=== PATIENT | female | born 1960 | race Caucasian/White ===

== ENCOUNTER 2025-07-27 17:29 | Outpatient (CLI) | payer BC, SELFPAY ==
--- NOTE | 2025-07-27 17:30 | MR_ITS ---
[address] [address] Phone:?[phone] Fax:?[phone] Referring Physician Information: Sampson Deleon M.D. [address] [facility] [address] Phone:?[phone] Fax:?[phone] Patient:Jerry Winters D.O.B:?1960 Sex:?Female Phone:?[phone] [facility] MRN:?[id number] Exam Date:?07/27/2025 EXAM: MRI of the LEFT KNEE, without contrast CLINICAL: Female, 65 years old, with left knee pain. INDICATION: Evaluate for suspected meniscus tear. PRIOR SURGERY: None reported. PLAIN FILMS: 06/30/2025 radiographic series of the left knee. COMPARISONS: No prior MRIs available. TECHNICAL: Using a 1.5 Tiffany MR scanner and a localizing surface coil: 3.0 mm?sagittals: PD, PDFS 3.0 mm?coronals: PD, STIR 3.0 mm?axials: PD, T2FS There is significant degradation of image quality due to decreased ifdskz-up-strbp ratio, somewhat limiting evaluation. SEDATION: None. CONTRAST: None. IMPRESSION: 1. Expected mildly complex predominantly oblique horizontal, but also some additional irregularity, tear of the medial meniscus centered at its middle third. 2. Expected mild medial compartment chondromalacia/osteoarthritis with minimal subjacent marrow edema. 3. Mild chondromalacia/degenerative change of the lateral patellar facet with small subchondral cysts. 4. Small towards moderate knee effusion. 5. No lateral meniscus tear. 6. No cruciate or collateral ligament injuries. FINDINGS: Knee joint: Effusion: Small towards moderate left knee joint effusion. Popliteal cyst: Minimal popliteal cyst. Loose bodies: No convincing discrete loose bodies. Subcutaneous and extra-articular soft tissues: Mild nonspecific deep subcutaneous soft tissue swelling/edema over the anterior knee. No defined fluid collection. Ligaments: ACL: Intact and normal. PCL: Intact and normal. MCL: Intact and normal. FCL: Intact and normal. Posterolateral corner: Intact popliteus, biceps femoris, iliotibial band, popliteofibular ligament and lateral gastrocnemius. Posteromedial corner: Intact pes anserinus and posterior oblique ligament. Extensor mechanism: Patellar tendon: Intact and normal. Quadriceps tendon: Intact and normal. Retinacula: Intact and normal. Fat pads: Unremarkable. Medial compartment: Medial meniscus: Abnormal signal alteration and deformity in keeping with expected relatively complex tear of middle third of the medial meniscus with extension of tear into adjacent portions of posterior greater than anterior thirds (sagittal images 8-15; coronal images 22-15). Medial femoral condyle: Limited evaluation of articular cartilage due to the degradation of image quality but expected chondromalacia/thinning of the central weight-bearing medial femoral condyle, without subjacent reactive marrow edema. Medial tibial plateau: Also expected chondral thinning of the medial tibial plateau with minimal focus of slight subjacent marrow edema anteriorly. Lateral compartment: Lateral meniscus: Intact and normal. Lateral femoral condyle: No demonstrable chondromalacia. Lateral tibial plateau: No demonstrable chondromalacia. Patellofemoral joint: Patella: Localized less than 1 cm grade II-III chondromalacia of junction of lateral facet and median patellar ridge is accompanied by small 4 mm subchondral cyst (axial images 8-9). Trochlea: No demonstrable chondromalacia. Proximal tibiofibular joint: Unremarkable. Bones: No other marrow edema or fractures. Neurovascular: Popliteal artery/vein: Normal. Anterior tibial artery: No aberrant variant. Tibial nerve: Normal. Popliteal nerve: Normal. Common peroneal nerve: Normal. [facility] Electronically signed on 07/28/2025 3:35:00 PM by Jonn Finley M.D.
== END 2025-07-27 17:30 | disposition home or self-care (01) ==
LOC: MRI 17:29
PROVIDERS: PCP Family Medicine; Visit Provider Orthopaedic Surgery
DX: M25.562 Pain in left knee (principal); S83.232A Complex tear of medial meniscus, current injury, left knee, initial encounter; M94.262 Chondromalacia, left knee; M25.462 Effusion, left knee
CPT/HCPCS: 73721

== ENCOUNTER 2025-08-27 08:32 | Day surgery (SDC) | payer BC, SELFPAY ==
[2025-08-27] VITALS (18 sets, daily range): BP systolic 73–128; BP diastolic 49–78; PULSE 61–79; RESP 12–16; TEMP 36.2–36.7; O2SAT 92–100; BMI 41.6
[2025-08-27] MEDS: SODIUM CHLORIDE 0.9 % (FLUSH) 10 ML SYRINGE IVF (08:55)
[2025-08-27] MEDS: LACTATED RINGERS 1000 ML 1,000 ML 100 ML IV (08:55)
[2025-08-27] MEDS: BUPIVACAINE 0.25% 30 ML INJECTION (11:32)
--- NOTE | 2025-08-27 11:55 | P.ORPRC_ITS ---
Procedure Note Date of procedure: 08/27/25 Procedure: PREOPERATIVE DIAGNOSIS: Left knee medial meniscus tear POSTOPERATIVE DIAGNOSIS: Left knee medial meniscus tear NAME OF OPERATION: Left knee arthroscopic partial medial meniscectomy SURGEON: Sampson Deleon MD SHADE CLOTH FINISHER: Nedra Vega PA-C ANESTHESIA: Spinal ESTIMATED BLOOD LOSS: 0 mL COMPLICATIONS: None SPECIMENS: None DRAINS: None PREOPERATIVE ANTIBIOTICS: Ancef 2 gram INDICATIONS: The patient is a 65-year-old with a history of left knee medial pain. MRI scan is consistent with a medial meniscus tear. Despite appropriate nonoperative management, including activity modification, antiinflammatories, gxng-pch-hvimmwt pain medication, bracing, physical therapy, and injections they continue to have pain and disability. Operative intervention was offered. The risks, benefits and expected outcomes were discussed in detail. These included but were not limited to: Infection, bleeding, injury to blood vessel or nerve, venous thromboembolism. All questions were answered to their satisfaction. PROCEDURE: Spinal anesthesia was administered. The patient was placed supine on the operating room table. The left lower extremity was prepped and draped in the usual sterile fashion. The limb was exsanguinated with the Raf bandage. The pneumatic tourniquet was inflated to 300 mmHg. A standard anterolateral portal was established. The arthroscope was introduced. The working portal was established anteromedially. Diagnostic arthroscopy was performed with findings as follows: The suprapatellar pouch is normal. Articular surface on the patella is normal. Articular surface on the trochlea is normal. The medial gutter is normal. The medial compartment shows diffuse grade 3 change on the medial femoral condyle, grade 2 change on the medial tibial plateau. The medial meniscus has a complex degenerative tear of the midbody and posterior horn. This consists of a radial tear at the junction of the midbody and posterior horn with an anteriorly based unstable flap. There was horizontal cleavage tearing of the undersurface of the posterior horn. The notch shows the ACL to be intact. The lateral compartment shows normal articular cartilage on the lateral femoral condyle and lateral tibial plateau. The lateral meniscus is normal. The lateral gutter is normal. The posterior horn of the medial meniscus was debrided to a stable base using a combination of baskets and angela through both portals. Arthroscopic instruments were removed, the portal sites were Steri-Stripped closed, the knee was infiltrated with 30 mL of 0.25% Marcaine without epinephrine. A dry dressing was applied, the tourniquet was released. Sponge and needle counts were correct x 2. The patient tolerated the procedure well. There were no apparent complications. They were carefully transferred to the hospital bed and taken to the postanesthesia care unit in satisfactory condition. PLAN: The patient will be discharged to home. They may weightbear as tolerates. Range of motion will be unrestricted. They will follow up in the office next week for a wound check.
--- NOTE | 2025-08-27 11:59 | P.ANES_ITS ---
Anesthesia Charges Start Date/Time Anesthesia Start Date: 08/27/25 Anesthesia Start Time: 10:57 Stop Date/Time Anesthesia Stop Date: 08/27/25 Anesthesia Stop Time: 11:54 Coding CPT Codes CPT Codes: ANESTH KNEE JOINT SURGERY - 84038 ([id number]) P3 - PATIENT W/SEVERE SYS DISEASE, QK - LINUX SECURITY ADMINISTRATOR 2-4 CNCRNT ANES PROC, QX - DESIGN ENGINEERING TECHNICIAN SVC W/ MD MED DIRECTION
--- NOTE | 2025-08-27 11:59 | W.ANESCHARGE ---
Anesthesia Charges Start Date/Time Anesthesia Start Date: 08/27/25 Anesthesia Start Time: 10:57 Stop Date/Time Anesthesia Stop Date: 08/27/25 Anesthesia Stop Time: 11:54 Coding CPT Codes CPT Codes: ANESTH KNEE JOINT SURGERY - 97072 ([id number]) P3 - PATIENT W/SEVERE SYS DISEASE, QK - TYPEWRITERS FUNCTIONAL TESTER 2-4 CNCRNT ANES PROC, QX - FLOOR COVERER SVC W/ MD MED DIRECTION
[2025-08-27] MEDS: PHENYLEPHRINE 100 MCG/ML SYRINGE IVP ×2 (12:04→12:18)
--- NOTE | 2025-08-27 12:41 | P.ANES_ITS ---
Anesthesia Charges Start Date/Time Anesthesia Start Date: 08/27/25 Anesthesia Start Time: 10:57 Stop Date/Time Anesthesia Stop Date: 08/27/25 Anesthesia Stop Time: 11:54 Coding CPT Codes CPT Codes: ANESTH KNEE JOINT SURGERY - 72409 ([id number]) QK - SPACE ENGINEER 2-4 CNCRNT ANES PROC, QX - ELECTRONIC NEWS GATHERING EDITOR SVC W/ MD MED DIRECTION, P3 - PATIENT W/SEVERE SYS DISEASE
--- NOTE | 2025-08-27 12:41 | W.ANESCHARGE ---
Anesthesia Charges Start Date/Time Anesthesia Start Date: 08/27/25 Anesthesia Start Time: 10:57 Stop Date/Time Anesthesia Stop Date: 08/27/25 Anesthesia Stop Time: 11:54 Coding CPT Codes CPT Codes: ANESTH KNEE JOINT SURGERY - 37366 ([id number]) QK - MARKETING TRAFFIC MANAGER 2-4 CNCRNT ANES PROC, QX - NEWS GATHERING TECHNICIAN SVC W/ MD MED DIRECTION, P3 - PATIENT W/SEVERE SYS DISEASE
[2025-08-27] MEDS: IBUPROFEN 600 MG TABLET PO (13:01)
== END 2025-08-27 13:40 | disposition home or self-care (01) ==
PROVIDERS: PCP Family Medicine; Visit Provider Orthopaedic Surgery
PROC: (CPT 29870; principal; 2025-08-27 10:15)
DX: M23.222 Derangement of posterior horn of medial meniscus due to old tear or injury, left knee (principal)
CPT/HCPCS: 29881; 01400; A9270; J0665; J0690; J1100; J1885; J2250; J2405; J2704; J7120

== ENCOUNTER 2025-10-20 07:05 | Day surgery (SDC) | payer BC, SELFPAY ==
[2025-10-20] VITALS (25 sets, daily range): BP systolic 87–137; BP diastolic 48–86; PULSE 79–103; RESP 14–20; TEMP 36–36.7; O2SAT 89–100; BMI 37.0
[2025-10-20] MEDS: CELECOXIB 200 MG CAPSULE PO ×2 (07:47→20:19)
[2025-10-20] MEDS: ACETAMINOPHEN 500 MG TABLET 1000 MG PO ×3 (07:47→22:13)
[2025-10-20] MEDS: SODIUM CHLORIDE 0.9 % (FLUSH) 10 ML SYRINGE IVF (08:16)
[2025-10-20] MEDS: LACTATED RINGERS 1000 ML 1,000 ML 100 ML IV ×2 (08:17→11:30)
--- NOTE | 2025-10-20 08:18 | SUR.PREOP ---
Dr. Banegas in to see pt and .
--- NOTE | 2025-10-20 08:21 | W.PM.H&PU ---
History & Physical Update History & Physical Update H&P Reviewed and patient assessed: No changes noted
--- NOTE | 2025-10-20 08:21 | PM.ORPRC ---
Procedure Note Date of procedure: 10/20/25 Procedure: PREOPERATIVE DIAGNOSIS: 1. Right knee osteoarthritis POSTOPERATIVE DIAGNOSES: 1. Right knee osteoarthritis PROCEDURE: 1. Right total knee arthroplasty (cemented, stemmed, fixed bearing) SURGEON: Alexi Banegas MD PERSONNEL SECURITY SPECIALIST: Warner Adams A skilled assistant business manager was critical for this case to aid in patient positioning, tissue retraction, bone exposure, limb manipulation/positioning, patient safety, and wound closure. ANESTHESIA: Spinal with adductor canal and genicular nerve blocks IMPLANTS: DePuy Attune knee system (cemented, stemmed, fixed bearing): Revision CRS femur size 6 with 14 mm x 50 mm cemented stem Revision tibial base fixed bearing size 5 with 14 mm x 50 mm cemented stem Posterior stabilized fixed bearing tibial insert size 5, 5 mm Attune cemented patella size 35 mm EBL: 200 ml TOURNIQUET TIME: 106 minutes at 250 mmHg COMPLICATIONS: None evident INDICATIONS: Josephine is a 65-year-old female who has chronic right knee pain secondary to osteoarthritis. Symptoms have worsened despite non operative treatment. Patient is now interested in proceeding with total knee arthroplasty for improved function, decreased pain, and better quality of life. Prior to the procedure, risks and benefits of the operative and non operative treatment were discussed with the patient. After discussion of risks, benefits, and alternatives of surgery, informed consent was obtained, and the operative site was marked. FINDINGS: Moderate to severe tricompartmental osteoarthritis with full-thickness cartilage loss and eburnated bone in the medial and patellofemoral compartments; grade 3 chondromalacia in the lateral compartment; and tricompartmental peripheral osteophyte formation. PROCEDURE: Patient was seen preoperatively and operative site was marked. Adductor canal and genicular nerve blocks were performed by anesthesia staff. Patient was then brought to the operating room, where spinal anesthesia was administered by the anesthesia staff. Patient was then placed into the supine position on the OR table and all bony prominences were well padded. 1.5 g IV vancomycin and 1 g IV tranexamic acid were administered preoperatively. A tourniquet was placed on the thigh of the operative leg. The operative lower extremity was prepped and draped in usual sterile fashion. A surgical time-out was performed confirming patient identity, surgical procedure, and surgical site. Initially, the tourniquet was not inflated. A longitudinal, anterior, midline skin incision was made starting approximately 4 cm proximal to the superior pole of the patella and advanced distal to the tibial tubercle. Incision was carried through subcutaneous tissues. The quadriceps tendon, medial patellar retinaculum, lateral patellar retinaculum, and patellar tendon were visualized. A subvastus approach was utilized to enter the joint. The proximal medial tibia was subperiosteally exposed distal to the joint line, and a curved osteotome was used to enter the semimembranosus bursa medially at the level of the joint line. The retropatellar fat pad was resected, and the synovium in the suprapatellar pouch was excised to visualize the anterior femoral cortex. The knee was flexed and patella was everted. Patella was protected anteverted, the knee was flexed. A rongeur was used to remove osteophytes from the medial and lateral tibial plateaus. The medial meniscus was excised at the meniscal synovial junction. At this point due to persistent bleeding, decision was made to use the tourniquet. Operative extremity was elevated and exsanguinated with an Esmarch, and tourniquet was inflated to 250 mmHg. The tourniquet remained inflated for 106 minutes before it was deflated. The anterior cruciate ligament was excised. A Z-retractor was placed medially and a retractor was placed anterior lateral to the lateral meniscus. A partial lateral meniscectomy was performed. The intramedullary drill was utilized to open the intramedullary canal. Intramedullary alignment guide was inserted. The distal femoral cutting block, set at 5 degrees of valgus with a distal femoral resection of 11 mm, was secured with pins, and the distal femoral osteotomy was performed. Using the posterior condylar referencing guide, femur was sized to a size 6, and pins were drilled for 3 degrees of external rotation, which corresponded with Whitesides line and the epicondylar axis. A 4-in-1 cutting jig was inserted at 3 degrees of external rotation. The anterior and posterior condylar cuts were performed followed by anterior and posterior chamfer cuts. The femoral trial component was secured into position and box cut was made with the reciprocating saw. The distal femur was then prepped with the intramedullary Reamer. We then turned our attention back to the tibia. Ranasall maneuver was performed and remainder of the lateral meniscus, medial meniscus, and PCL were excised. A retractor was placed along the posterior tibia. Drill for the intramedullary tibial guide was utilized to access intramedullary canal of the tibia. The intramedullary tibial guide was then secured into position. The tibial cutting block was secured into position, set to remove 2 mm of bone from medial tibial plateau and 10 mm of bone from lateral tibial plateau. Tibial osteotomy was performed with care taken to protect the collateral ligaments. Spacer blocks were inserted, and the knee was noted be tight medially in both flexion and extension. Therefore additional release of the medial soft tissues was performed. Spacer blocks were reinserted, which now confirmed symmetric flexion and extension gaps. The tibia was then sized to a size 5, and tibial base plate was secured into position. Tibia was then prepped with the appropriate reamers and punch. While reaming for the stemmed component some resistance was met. Decision was subsequently made to perform intraoperative imaging to confirm placement of the intramedullary stem. X-rays revealed that the distal tip of the stem was abutting the posterior cortex. Alignment was in the center of the canal on the AP image. Therefore tibial base plate was shifted anteriorly and secured back into position. Tibia was then prepped with the appropriate reamers and punch. Trial stemmed femur and tibia components with a 5 mm tibial polyethylene component were inserted. The patella was then everted, and the osteochondral junction of the patella was then exposed. The patella measured 23 mm in thickness. A patellar osteotomy was then performed leaving 14 mm of remnant patella. Three lug holes were drilled for the 35 mm patella button. The knee was brought through a full range of motion. Soft tissue tension, collateral ligament stability, and patella tracking were confirmed to be satisfactory. Trial components were then removed. The exposed bony surfaces of the tibia, femur, and patella were then thoroughly irrigated with pulse lavage and dried. Cement was mixed on the back table and was subsequently introduced onto the tibia, tibial base plate, and tibial stem. Tibial base plate and stem were then impacted into position, and extruded cement was removed. Cement was then applied to the distal femur, femoral stem, and posterior condyles of the femoral prosthesis. The femoral prosthesis was impacted into position, extruded cement was removed, and a trial polyethylene was inserted. Knee was then brought out to full extension and axial compression was applied for remainder of drying. Cement was then applied to the patella and patellar button. The patella button was clamped into position, and extruded cement was removed. While the cement was drying, knee was soaked in a sterile iodine solution. After the cement had dried, the knee was flexed and the trial tibial component was removed. The tourniquet was released. Total tourniquet time was 106 minutes. Hemostasis was achieved with electrocautery. A formal size 6, 5 mm fixed bearing posterior stabilized polyethylene was then secured into position. Knee was then irrigated normal saline using pulsatile lavage. The arthrotomy was closed with #1 Vicryl [id number] interrupted sutures followed by a running #1 Stratafix suture. Subcutaneous soft tissues were again irrigated normal saline. Skin was closed with 2-0 Vicryl inverted, interrupted, subcutaneous stitches followed by running 2-0 Stratafix a subcuticular stitches. The incision was then sealed with Dermabond and sterile dressing was applied. The patient was then transferred to the recovery room in stable condition. POSTOPERATIVE PLAN: 1. Patient will be admitted to the hospital, where she will follow the postoperative total knee arthroplasty protocol. 2. Mobilize with physical therapy and occupational therapy. -Weight bear as tolerated right lower extremity. 3. Pain control: -Acetaminophen and oral Dilaudid for pain as needed. -IV pain medications for breakthrough pain. -Ice for pain and swelling. 4. Postoperative prophylactic antibiotics x2 doses 5. DVT prophylaxis: -Xarelto 10 mg daily for 35 days. -SCDs 6. Follow-up in Orthopedic Clinic in 1-2 weeks.
[2025-10-20] MEDS: VANCOMYCIN 1.5 GM/300 ML 1.5 GM/300 ML PIGGYBACK IVPB (08:47)
[2025-10-20] MEDS: MIDAZOLAM HCL 1 MG/ML inj IVP (09:09)
--- NOTE | 2025-10-20 09:11 | SUR.PREOP ---
TIME?OUT:?0908 PT/RN/MDA?VERIFICATION?OF?SURGICAL?SITE,?PROCEDURE,?AND?CONSENT OBTAINED?PRIOR?TO?INVASIVE?PROCEDURE. all in agreement
--- NOTE | 2025-10-20 09:40 | P.ANES_ITS ---
Anesthesia Charges Start Date/Time Anesthesia Start Date: 10/20/25 Anesthesia Start Time: 09:16 Stop Date/Time Anesthesia Stop Date: 10/20/25 Anesthesia Stop Time: 12:55 Coding CPT Codes CPT Codes: ANESTH KNEE ARTHROPLASTY - 13421 ([id number]) P3 - PATIENT W/SEVERE SYS DISEASE, QK - BROTHEL KEEPER 2-4 CNCRNT ANES PROC, QX - RAIL WALKER SVC W/ MD MED DIRECTION
--- NOTE | 2025-10-20 09:40 | P.NB_ITS ---
Nerve Block Nerve Block Time Seen by Provider: 09:10 Date Seen: 10/20/25 Type of block requested by surgeon for post-operative analgesia: adductor canal Side: right Time out performed: Yes Verification of patient name: Yes Verification of date of : Yes Site marking: site marked Name of person performing procedure: Oleg Continuous monitoring Was continuous monitoring of O2 sat, B/P, bus driver/monitor, recorded every 15 minutes?: Yes Procedure Checklist: sterile prep, needles and gloves Ultrasound guided. Images saved: Yes Medications given in 5ml increments after negative aspiration: Marcaine %: 0.25 mL: 15 Needle gauge: 20 Precedex (mcg): 25 Patient tolerated procedure well: Yes Block Charges Block Charge (with Pro Fee): Femoral Nerve Use of Ultrasound Machine for Block: Yes- US Guidance/pain block
--- NOTE | 2025-10-20 09:40 | W.ANESCHARGE ---
Anesthesia Charges Start Date/Time Anesthesia Start Date: 10/20/25 Anesthesia Start Time: 09:16 Stop Date/Time Anesthesia Stop Date: 10/20/25 Anesthesia Stop Time: 12:55 Coding CPT Codes CPT Codes: ANESTH KNEE ARTHROPLASTY - 21946 ([id number]) P3 - PATIENT W/SEVERE SYS DISEASE, QK - RECONSTRUCTIVE DENTIST 2-4 CNCRNT ANES PROC, QX - ASSURANCE SENIOR MANAGER INSURANCE SVC W/ MD MED DIRECTION
--- NOTE | 2025-10-20 09:41 | P.NB_ITS ---
Nerve Block Nerve Block Time Seen by Provider: 09:10 Date Seen: 10/20/25 Type of block requested by surgeon for post-operative analgesia: geniculars Side: right Time out performed: Yes Verification of patient name: Yes Verification of date of : Yes Site marking: site marked Name of person performing procedure: Oleg Continuous monitoring Was continuous monitoring of O2 sat, B/P, double end chucking machine operator, recorded every 15 minutes?: Yes Procedure Checklist: sterile prep, needles and gloves Ultrasound guided. Images saved: Yes Medications given in 5ml increments after negative aspiration: Marcaine %: 0.25 mL: 9 Needle gauge: 25 Patient tolerated procedure well: Yes Block Charges Block Charge (with Pro Fee): Genicular Nerve Block
--- NOTE | 2025-10-20 11:15 | CRLHL7_ITS ---
For Patients: As a result of the Century Cures Act, medical imaging exams and procedure reports are released immediately into your electronic medical record. You may view this report before your referring provider. If you have questions, please contact your health care provider. Indication: Intra op right TKA Technique: Two views right knee Comparison: 06/30/2025 IMPRESSION: Intraoperative films demonstrate placement of a hardware device into the proximal tibia. Dictated by Alphonse Guillermo MD @ 10/20/2025 11:50:15 AM (Electronically Signed)
--- NOTE | 2025-10-20 12:52 | CRLHL7_ITS ---
For Patients: As a result of the Cures Act, medical imaging exams and procedure reports are released immediately into your electronic medical record. You may view this report before your referring provider. If you have questions, please contact your health care provider. Indication: Postop Technique: Two views right knee Findings/Impression: Hardware from a right total knee arthroplasty is in satisfactory position. Bone alignment is normal. No sign of acute fracture. Postop changes are within normal limits. Dictated by Alphonse Guillermo MD @ 10/20/2025 4:00:00 PM (Electronically Signed)
--- NOTE | 2025-10-20 13:01 | P.ANES_ITS ---
Anesthesia Charges Start Date/Time Anesthesia Start Date: 10/20/25 Anesthesia Start Time: 09:16 Stop Date/Time Anesthesia Stop Date: 10/20/25 Anesthesia Stop Time: 12:55 Coding CPT Codes CPT Codes: ANESTH KNEE ARTHROPLASTY - 22200 ([id number]) P3 - PATIENT W/SEVERE SYS DISEASE, QK - FISCAL ECONOMIST 2-4 CNCRNT ANES PROC, QX - BOARD DESIGN ENGINEER SVC W/ MD MED DIRECTION
--- NOTE | 2025-10-20 13:01 | W.ANESCHARGE ---
Anesthesia Charges Start Date/Time Anesthesia Start Date: 10/20/25 Anesthesia Start Time: 09:16 Stop Date/Time Anesthesia Stop Date: 10/20/25 Anesthesia Stop Time: 12:55 Coding CPT Codes CPT Codes: ANESTH KNEE ARTHROPLASTY - 67666 ([id number]) P3 - PATIENT W/SEVERE SYS DISEASE, QK - WOOD PILE DRIVER OPERATOR 2-4 CNCRNT ANES PROC, QX - INTAKE COORDINATOR SVC W/ MD MED DIRECTION
--- NOTE | 2025-10-20 14:29 | PM.IMCN1 ---
Date of Consult Patient: Yvon Patient Consult date: 10/20/25 Requesting Physician: Orthopedics Primary Care Provider: Joel White MD Consult Narrative Reason for consult: Medical management Narrative: Dianne Winters is a 65 year old female past medical history Significant for right knee osteoarthritis, s/p left TKA, hyperlipidemia, rhinitis, anxiety, LAKHWINDER on CPAP is POD#0 s/p right total knee arthroplasty, Dr. Banegas. There have been no perioperative complications or nursing concerns reported. Estimated total blood loss documented as 200ml. Updated and reviewed the active medical problems, past medical history, past surgical history, social history, allergies and medications in our electronic EMR. Blood pressure is postoperatively have been soft, systolics just under 100. Not terribly symptomatic. Able to complete therapies. Postoperatively, patient reports pain is currently well managed. Has a slight sensation of burning across the top of her knee but this is not otherwise bothersome. Denies headache or dizziness. Denies chest pain or shortness of breath. Tolerating orals without nausea vomiting. Review of Systems Narrative: REVIEW OF SYSTEMS: Complete review of systems performed and negative unless otherwise stated in HPI or below. [facility] Medical History High cholesterol ?E78.00 - Pure hypercholesterolemia, unspecified (ICD-10) Heart disease ?I51.9 - Heart disease, unspecified (ICD-10) Anxiety disorder, unspecified ?F41.9 - Anxiety disorder, unspecified (ICD-10) ASCUS of cervix with negative high risk HPV ?R87.610 - Atypical squamous cells of undetermined significance on cytologic smear of cervix (ASC-US) (ICD-10) LAKHWINDER (obstructive sleep apnea) ?G47.33 - Obstructive sleep apnea (adult) (pediatric) (ICD-10) Migraine NOS/intractable ?G43.919 - Migraine, unspecified, intractable, without status migrainosus (ICD-10) Bilateral chronic knee pain ?M25.561 - Pain in right knee (ICD-10) ?M25.562 - Pain in left knee (ICD-10) ?G89.29 - Other chronic pain (ICD-10) Arthritis of carpometacarpal (CMC) joint of right thumb ?M18.11 - Unilateral primary osteoarthritis of first carpometacarpal joint, right hand (ICD-10) Arthritis of carpometacarpal (CMC) joint of left thumb ?M18.12 - Unilateral primary osteoarthritis of first carpometacarpal joint, left hand (ICD-10) Carpal tunnel syndrome of left wrist ?G56.02 - Carpal tunnel syndrome, left upper limb (ICD-10) Carpal tunnel syndrome of right wrist ?G56.01 - Carpal tunnel syndrome, right upper limb (ICD-10) Bunion of left foot ?M21.612 - Bunion of left foot (ICD-10) PTTD (posterior tibial tendon dysfunction) ?M76.829 - Posterior tibial tendinitis, unspecified leg (ICD-10) Pes planus of left foot ?M21.42 - Flat foot [pes planus] (acquired), left foot (ICD-10) Acute and chronic cholecystitis ?K81.2 - Acute cholecystitis with chronic cholecystitis (ICD-10) Sinusitis ?J32.9 - Chronic sinusitis, unspecified (ICD-10) Allergic rhinitis, cause unspecified ?J30.9 - Allergic rhinitis, unspecified (ICD-10) Morbid obesity with BMI of 40.0-44.9, adult ?E66.01 - Morbid (severe) obesity due to excess calories (ICD-10) ?Z68.41 - Body mass index [BMI] 40.0-44.9, adult (ICD-10) Vitamin D deficiency ?E55.9 - Vitamin D deficiency, unspecified (ICD-10) Mixed hyperlipidemia ?E78.2 - Mixed hyperlipidemia (ICD-10) Family history of ischemic heart disease ?Z82.49 - Family history of ischemic heart disease and other diseases of the circulatory system (ICD-10) Surgical History Status post medial meniscectomy of left knee (08/27/25) ?Z98.890 - Other specified postprocedural states (ICD-10) H/O tubal ligation ?Z98.51 - Tubal ligation status (ICD-10) Previous back surgery ?Z98.890 - Other specified postprocedural states (ICD-10) History of arthroscopy of right knee (02/06/19) ?Z98.890 - Other specified postprocedural states (ICD-10) History of laparoscopic cholecystectomy ?Z90.49 - Acquired absence of other specified parts of digestive tract (ICD-10) History of removal of retained hardware ?Z98.890 - Other specified postprocedural states (ICD-10) Family History Other Diabetes Heart disease High cholesterol Social History What is your current living situation?: I presently have a place to live Problems where you live: no known problems In the past 12 months, utilities in danger of being shut off: no In past 12 months, lack of transportation kept you from medical appts, meetings, work, or getting things needed for daily living: no In the past 12 mos, have been you worried that your food would run out before you had money to buy more?: never true In the past 12 mos, the food you bought just didn't last and you didn't have money to buy more?: never true Smoking Status: Never smoker Do you use any of these nicotine containing products: None How often do you have a drink containing alcohol: never How many standard drinks containing alcohol do you have on a typical day: 1 or 2 How often do you have six or more drinks on one occasion: Never AUDIT-C Alcohol total score: 0 Non-prescribed substance use: denies use Caffeine: No How often does anyone, including family, friends and others, physically hurt you: never How often does anyone, including family, friends and others, insult or talk down to you: never How often does anyone, including family, friends and others, threaten you with harm: never How often does anyone, including family, friends and others, scream or curse at you: never Are you using contraception or practicing any form of control: No Meds Home Medications and Allergies Home Medications ?Medication ?Instructions ?Recorded ?Confirmed ?Type amitriptyline 25 mg tablet 25 mg PO HS 10/16/23 10/20/25 History azelastine 0.05 % eye drops 1 drp ophthalmic (eye) BID 08/26/25 10/16/25 History azelastine 137 mcg (0.1 %) nasal 2 spray intranasal BID 08/26/25 10/16/25 History spray clobetasol 0.05 % topical ointment 1 applic topical BID 08/26/25 10/16/25 History lorazepam 1 mg tablet 1 mg PO Q6H PRN anxiety 08/26/25 10/20/25 History sertraline 100 mg tablet 100 mg PO DAILY 08/26/25 10/20/25 History tirzepatide (weight loss) 2.5 2.5 mg subcut QWEEK 10/16/25 10/20/25 History mg/0.5 mL subcutaneous solution (Zepbound) acetaminophen 500 mg capsule 500 - 1,000 mg (1 - 2 x 500 mg) PO 10/20/25 Rx Q6H PRN pain #100 caps diclofenac sodium 1 % topical gel 2 g topical QID 10/20/25 10/20/25 History (Arthritis Pain (diclofenac)) Held on 10/20/25. Instructions: Resume on 11/25/25. hydromorphone 2 mg tablet 2 mg PO Q6H PRN pain #28 tabs 10/20/25 Rx rivaroxaban 10 mg tablet (Xarelto) 10 mg PO DAILY DVT Prophylaxis #35 10/20/25 Rx tabs sennosides 8.6 mg tablet (Senna 17.2 mg (2 x 8.6 mg) PO BID PRN 10/20/25 Rx Lax) constipation #100 tabs Allergies Allergy/AdvReac Type Severity Reaction Status Date / Time cefuroxime Allergy Rash Verified 10/16/25 10:37 Szygmsy-[id number] Reductase Allergy Verified 10/06/25 15:14 Inhibitor Sulfa (Sulfonamide Allergy Verified 10/06/25 15:14 Antibiotics) oxycodone AdvReac Severe Headache Verified 10/06/25 15:14 Exam Narrative: Exam Narrative: PHYSICAL EXAM General: Pleasant, conversant, NAD HEENT: Normocephalic, atraumatic, sclera white, EOMI, oral mucosa moist Cardiovascular: RRR, S1S2. No pitting edema Pulmonary: CTA bilaterally without rhonchi, rales, expiratory wheezes. No dyspnea Neurological: Alert, answering questions appropriately, cranial nerves intact, no focal findings Extremities: No gross joint deformity or swelling. Postoperative dressing in place, dry. Neurovascularly intact Skin: Warm, dry. Const: Vital Signs, click to edit/add: Vital Signs - 24 hr 10/20/25 08:29 10/20/25 09:06 10/20/25 09:11 Temperature 98.1 F Pulse Rate 81 81 79 Respiratory Rate 16 16 16 Blood Pressure 118/72 137/86 118/64 Pulse Oximetry 95 99 95 Oxygen Delivery Me thod Room Air Room Air Nasal Cannula Oxygen Flow Rate 2 10/20/25 12:50 10/20/25 12:55 10/20/25 13:00 Temperature 97.6 F Pulse Rate 91 92 92 Respiratory Rate 16 16 14 Blood Pressure 89/48 L 90/54 L 96/54 L Pulse Oximetry 92 89 95 Oxygen Delivery Me thod Room Air Nasal Cannula Nasal Cannula Oxygen Flow Rate 2 2 10/20/25 13:05 10/20/25 13:10 10/20/25 13:15 Temperature 97.6 F Pulse Rate 94 89 90 Respiratory Rate 14 14 14 Blood Pressure 107/57 L 107/59 L 99/56 L Pulse Oximetry 96 100 99 Oxygen Delivery Me thod Nasal Cannula Room Air Room Air Oxygen Flow Rate 2 10/20/25 13:20 Temperature 97.6 F Pulse Rate 88 Respiratory Rate 14 Blood Pressure 91/56 L Pulse Oximetry 99 Oxygen Delivery Me thod Room Air Oxygen Flow Rate Assessment and Plan Assessment and plan (1) Osteoarthritis of right knee: Problem comment: -POD#0 s/p R TKA, Dr. Banegas, 10/20/2025 -perioperative management including pain management and anticoagulation per Orthopedic surgery -encourage postoperative pulmonary hygiene -PT OT consults -plan to discharge home with spouse tomorrow Status: Acute (2) LAKHWINDER (obstructive sleep apnea): Problem comment: -encourage postoperative pulmonary hygiene -CPAP Status: Acute Plan May resume home medications upon discharge. Hospital medicine team will sign off. Please contact our service with any questions or concerns. Total Time Spent Total Time Spent: Today I spent 65 minutes seeing the patient, reviewing Expanse and EPIC notes/diagnostics, discussing the care plan with our care time that includes social work, PT/OT, pharmacy, RT, correction and documenting my impressions and plan in the medical record.
--- NOTE | 2025-10-20 19:38 | PC.NURSE ---
End of shift [id number] - Pt arrived from PACU at approximately 1330. Alert, oriented, and cooperative. Tolerating RA and regular diet/fluids. Pt reported pain in operative knee as 8/10, given medication per MAR with pt reporting improvement to 5/10 which she reports is tolerable. Ice pack in place, pedal pulse present, dressing CDI. Pt able to void during shift, denies SOB, n/v, and dizziness. Family at bedside. Pt appears to be resting comfortably in bed at end of shift with call light within reach.
[2025-10-20] MEDS: VANCOMYCIN 1.25 GM/250 ML 1.25 GM/250 ML PIGGYBACK IVPB (20:19)
[2025-10-20] MEDS: SENNOSIDES 1 TAB TABLET 2 TAB PO (20:19)
[2025-10-21 03:00] VITALS: BP 100/56; PULSE 82; RESP 16; TEMP 36.6; O2SAT 95
[2025-10-21] MEDS: ACETAMINOPHEN 500 MG TABLET 1000 MG PO ×2 (04:26→10:30)
--- NOTE | 2025-10-21 06:40 | PC.NURSE ---
End of shift report : AxOx4.?VSS.?Afebrile. On RA.?Utilized?home CPAP overnight. Right knee dressing is C/D/I?and CMS is intact. Denies nausea. Pt rates pain from a 5-6/10,?prn?pain meds?offered and?given with?relief. Pt ambulates SBA with walker and gait belt.??
--- NOTE | 2025-10-21 07:23 | PM.ORPN ---
Subjective Subjective Time Seen by Provider: 07:23 Date Seen: 10/21/25 Principal diagnosis: Status post right knee replacement Interval history: Josephine is comfortable. She states she got some rest last night. She will discharge today to home Ortho Exam Narrative Exam Narrative: Alert and oriented x3. Patient is in no acute distress. Converses without labored breathing. Hearing is grossly intact. Ambulates with a walker. Examination of the right knee shows the dressing is in place. No erythema or warmth or sign of infection. Calves are soft and nontender. CMS intact right lower extremity. Mild anterior knee hematoma. She is easily able to straight leg raise. Const Vital Signs, click to edit/add: Vital Signs - 24 hr 10/20/25 08:29 10/20/25 09:06 10/20/25 09:11 Temperature 98.1 F Pulse Rate 81 81 79 Pulse Rate [Left Pulse Oximeter] Pulse Rate [Right Dorsalis Pedis] Respiratory Rate 16 16 16 Blood Pressure 118/72 137/86 118/64 Blood Pressure [Right Arm] Pulse Oximetry 95 99 95 Oxygen Delivery Method Room Air Room Air Nasal Cannula Oxygen Flow Rate 2 10/20/25 12:50 10/20/25 12:55 10/20/25 13:00 Temperature 97.6 F Pulse Rate 91 92 92 Pulse Rate [Left Pulse Oximeter] Pulse Rate [Right Dorsalis Pedis] Respiratory Rate 16 16 14 Blood Pressure 89/48 L 90/54 L 96/54 L Blood Pressure [Right Arm] Pulse Oximetry 92 89 95 Oxygen Delivery Method Room Air Nasal Cannula Nasal Cannula Oxygen Flow Rate 2 2 10/20/25 13:05 10/20/25 13:10 10/20/25 13:15 Temperature 97.6 F Pulse Rate 94 89 90 Pulse Rate [Left Pulse Oximeter] Pulse Rate [Right Dorsalis Pedis] Respiratory Rate 14 14 14 Blood Pressure 107/57 L 107/59 L 99/56 L Blood Pressure [Right Arm] Pulse Oximetry 96 100 99 Oxygen Delivery Method Nasal Cannula Room Air Room Air Oxygen Flow Rate 2 10/20/25 13:20 10/20/25 13:31 10/20/25 13:45 Temperature 97.6 F 96.9 F L 97.6 F Pulse Rate 88 Pulse Rate [Left Pulse Oximeter] 89 96 Pulse Rate [Right Dorsalis Pedis] Respiratory Rate 14 16 18 Blood Pressure 91/56 L Blood Pressure [Right Arm] 97/59 L 87/68 L Pulse Oximetry 99 93 91 Oxygen Delivery Method Room Air Room Air Room Air Oxygen Flow Rate 10/20/25 14:00 10/20/25 14:30 10/20/25 15:00 Temperature 97.6 F Pulse Rate Pulse Rate [Left Pulse Oximeter] 92 92 Pulse Rate [Right Dorsalis Pedis] Respiratory Rate 18 20 Blood Pressure Blood Pressure [Right Arm] 96/58 L 91/57 L Pulse Oximetry 91 93 Oxygen Delivery Method Room Air Room Air Oxygen Flow Rate 10/20/25 15:48 10/20/25 15:51 10/20/25 15:53 Temperature 97.9 F 97.9 F Pulse Rate Pulse Rate [Left Pulse Oximeter] 95 98 98 Pulse Rate [Right Dorsalis Pedis] Respiratory Rate 16 16 Blood Pressure Blood Pressure [Right Arm] 96/52 L 96/52 L 96/52 L Pulse Oximetry 92 92 Oxygen Delivery Method Oxygen Flow Rate 10/20/25 16:00 10/20/25 16:30 10/20/25 17:30 Temperature 96.8 F L Pulse Rate Pulse Rate [Left Pulse Oximeter] 99 Pulse Rate [Right Dorsalis Pedis] 96 Respiratory Rate 20 Blood Pressure Blood Pressure [Right Arm] 98/52 L 98/52 L 101/57 L Pulse Oximetry 93 Oxygen Delivery Method Room Air Oxygen Flow Rate 10/20/25 18:16 10/20/25 19:30 10/20/25 23:00 Temperature 97.0 F L 97.4 F L 97.3 F L Pulse Rate Pulse Rate [Left Pulse Oximeter] 103 H 96 84 Pulse Rate [Right Dorsalis Pedis] Respiratory Rate 20 20 18 Blood Pressure Blood Pressure [Right Arm] 103/60 96/65 102/60 Pulse Oximetry 96 94 93 Oxygen Delivery Method Room Air Room Air Room Air Oxygen Flow Rate 10/20/25 23:00 10/20/25 23:00 10/20/25 23:16 Temperature 97.3 F L Pulse Rate Pulse Rate [Left Pulse Oximeter] 84 Pulse Rate [Right Dorsalis Pedis] Respiratory Rate 18 18 18 Blood Pressure Blood Pressure [Right Arm] 102/60 Pulse Oximetry 93 93 Oxygen Delivery Method Room Air Room Air Oxygen Flow Rate 10/21/25 03:00 Temperature 97.9 F Pulse Rate Pulse Rate [Left Pulse Oximeter] 82 Pulse Rate [Right Dorsalis Pedis] Respiratory Rate 16 Blood Pressure Blood Pressure [Right Arm] 100/56 L Pulse Oximetry 95 Oxygen Delivery Method CPAP Oxygen Flow Rate Assessment and Plan Assessment and plan (1) Status post right knee replacement: Problem details: 10/20/2025, Dr. Banegas Status: Acute Assessment and Plan: Plan for discharge is today to home if they meet discharge criteria. DVT prophylaxis includes Xarelto 10 mg daily times 35 days total. Compression stockings as needed for swelling. Frequent ambulation, every hour throughout the day. Remove dressing in 1 week. Observe wound and phone Orthopedics with any questions or concerns Return to clinic in 1-2 weeks for a wound check as scheduled Return to clinic in 6 weeks with surgeon Minimize narcotic use. Wean off and discontinue soon as possible. Activities as tolerated. No strenuous activity. Outpatient physical therapy as scheduled. Ice and elevate the operative extremity. No restriction on ice. Josephine is tolerating hydromorphone.
[2025-10-21 07:45] VITALS: PULSE 72; RESP 18; O2SAT 96
[2025-10-21 07:47] VITALS: BP 98/55; PULSE 72; RESP 18; TEMP 36.6; O2SAT 96
[2025-10-21] MEDS: VANCOMYCIN 1.25 GM/250 ML 1.25 GM/250 ML PIGGYBACK IVPB (08:08)
[2025-10-21] MEDS: CELECOXIB 200 MG CAPSULE PO (09:47)
[2025-10-21] MEDS: SENNOSIDES 1 TAB TABLET 2 TAB PO (09:48)
[2025-10-21 11:23] VITALS: BP 120/60; PULSE 70; RESP 16; TEMP 36.6; O2SAT 97
--- NOTE | 2025-10-21 15:58 | PC.NURSE ---
shift note: pt AOX4. pt VSS. pt reports pain between 4-10/10. prn & scheduled pain med given- see EMAR active ice applied. slight bruising and edema at surgical site. PT works w/ PT/OT & tolerates well. Pt is voiding and tolerating regular diet. dressing is C/D/I. RN provides education to pt and her regarding medications, pain mgmt, follow up, activity. IV access removed. pt wheeled out to personal vehicle by LILIYA w/ to go home in personal vehicle.
== END 2025-10-21 12:00 | disposition home or self-care (01) ==
LOC: OR 07:07 → MEDSURG 07:08
PROVIDERS: PCP Family Medicine; Visit Provider Orthopaedic Surgery
PROC: (CPT 27447; principal; 2025-10-20 09:15)
DX: M17.11 Unilateral primary osteoarthritis, right knee (principal); G89.18 Other acute postprocedural pain; E66.01 Morbid (severe) obesity due to excess calories; Z68.41 Body mass index [BMI] 40.0-44.9, adult; G47.33 Obstructive sleep apnea (adult) (pediatric); Z99.89 Dependence on other enabling machines and devices; F41.9 Anxiety disorder, unspecified; J31.0 Chronic rhinitis; E78.2 Mixed hyperlipidemia
CPT/HCPCS: 27447; 01402; 64447; 64454; 73560; 76942; 97110; 97116; 97161; 97165; 97530; 97535; A9270; C1776; J0690; J1100; J2250; J2371; J2405; J2704; J3010; J3375; J3490; J7120